=== PATIENT | male | born 1980 | race Caucasian/White ===

== ENCOUNTER 2018-08-20 09:46 | Emergency (ER) | payer SELFPAY ==
--- NOTE | 2018-08-20 10:30 | RAD ---
RADIOGRAPH CHEST 2 VIEWS: HISTORY: 38-year-old male with productive cough. FINDINGS: There is no air space density, pulmonary edema, pleural effusion, pneumothorax, or cardiomegaly. IMPRESSION: No acute cardiopulmonary findings. jn [] POS: [facility]
== END 2018-08-20 12:02 | disposition home or self-care (01) ==
LOC: ERS 09:46
DX: J06.9 Acute upper respiratory infection, unspecified (principal); J20.8 Acute bronchitis due to other specified organisms; E11.9 Type 2 diabetes mellitus without complications; F17.210 Nicotine dependence, cigarettes, uncomplicated; Z79.84 Long term (current) use of oral hypoglycemic drugs
CPT/HCPCS: 71046